=== PATIENT | male | born 1995 | race Caucasian/White ===

== ENCOUNTER 2017-04-29 12:04 | Emergency (ER) | payer MEDICAID ==
[~2017-04-29] VITALS: Ht 167.6 cm; Wt 68.0 kg
[2017-04-29 12:30] VITALS: BP 130/78; Ht 167.6 cm; Wt 68.0 kg
== END 2017-04-29 13:21 | disposition home or self-care (01) ==
LOC: ED 12:04
DX: S83.91XA Sprain of unspecified site of right knee, initial encounter (principal); X58.XXXA Exposure to other specified factors, initial encounter; Y93.89 Activity, other specified; Y92.89 Other specified places as the place of occurrence of the external cause; Y99.8 Other external cause status